=== PATIENT | male | born 1950 | race Caucasian/White ===

== ENCOUNTER → 2018-03-11 | Outpatient (CLI) | payer MEDICARE | END | disposition home or self-care (01) | LOC: OIH 12:58 | PROVIDERS: ATTEND Family Medicine | DX: N20.0 Calculus of kidney (principal); M47.896 Other spondylosis, lumbar region | CPT/HCPCS: 74018 ==

== ENCOUNTER → 2018-10-31 | Outpatient (CLI) | payer MEDICARE | END | disposition home or self-care (01) | LOC: OIH 10:47 | PROVIDERS: ATTEND Family Medicine | DX: Z01.818 Encounter for other preprocedural examination (principal); N20.0 Calculus of kidney; M47.815 Spondylosis without myelopathy or radiculopathy, thoracolumbar region; M41.9 Scoliosis, unspecified | CPT/HCPCS: 71046; 74018 ==

== ENCOUNTER 2018-11-13 07:23 | Inpatient (IN) | payer MEDICARE | END 2018-11-15 19:00 | disposition home health service (06) | LOC: DAHIP 07:23 → 4BH 15:12 | PROC: 0SRB0JZ Replacement of Left Hip Joint with Synthetic Substitute, Open Approach (ICD-10-PCS; principal; 2018-11-13 10:35) | DX: M16.12 Unilateral primary osteoarthritis, left hip (principal) ==

== ENCOUNTER → 2019-11-06 | Outpatient (CLI) | payer MEDICARE ==
[~2019-11-06] MED LIST: ASPI-1012 PO; HYDR-4457 PO
== END | disposition home or self-care (01) ==
LOC: RAH 08:45
PROVIDERS: ATTEND Family Medicine
DX: I71.4 Abdominal aortic aneurysm, without rupture (principal); I70.0 Atherosclerosis of aorta
CPT/HCPCS: 76775

== ENCOUNTER → 2020-07-02 | Outpatient (CLI) | payer MEDICARE ==
[~2020-07-02] MED LIST changes: +GADODIAMIDE 10 MMOL/20 ML VIAL IV ONE
== END | disposition home or self-care (01) ==
LOC: RAH 07:52
PROVIDERS: ATTEND Family Medicine
DX: M50.222 Other cervical disc displacement at C5-C6 level (principal); R22.1 Localized swelling, mass and lump, neck; J34.1 Cyst and mucocele of nose and nasal sinus
CPT/HCPCS: 70543; A9579

== ENCOUNTER → 2020-12-02 | Outpatient (CLI) | payer MEDICARE ==
[~2020-12-02] MED LIST changes: +ASPI-1005 PO; -ASPI-1012 PO; +ATOR40TA69 PO; +CARV12.580 PO; +CLOP75TA14 PO; +COLC0.6T73 PO; +FURO40TA7 PO; -GADODIAMIDE 10 MMOL/20 ML VIAL IV ONE; -HYDR-4457 PO; +LISI2.5T2 PO
== END | disposition home or self-care (01) ==
LOC: RAH 12:47
PROVIDERS: ATTEND Internal Medicine Cardiovascular Disease
DX: I82.401 Acute embolism and thrombosis of unspecified deep veins of right lower extremity (principal); M79.661 Pain in right lower leg; I87.1 Compression of vein
CPT/HCPCS: 93971

== ENCOUNTER 2021-07-22 16:19 | Inpatient (IN) | payer MEDICARE ==
[~2021-07-22] VITALS: Ht 180.3 cm; Wt 75.0 kg
[~2021-07-22 16:19] MED LIST changes: +LISI2.5T13 PO; -LISI2.5T2 PO
[2021-07-22 17:18] LABS: BASOPHILS % (AUTO) 0.3 % (0.0-5.0); EOSINOPHILS % (AUTO) 0.8 % (0.0-8.0); HEMATOCRIT 36.9 % (42-54); LYMPHOCYTES % (AUTO) 13.4 % (21.0-51.0); MEAN CORPUSCULAR HEMOGLOBIN 32.1 pg (27.0-33.0); MEAN CORPUSCULAR HGB CONC 32.5 g/dL (32.0-36.0); MEAN CORPUSCULAR VOLUME 98.7 fL (79-99); MONOCYTES % (AUTO) 7.9 % (3.0-13.0); NEUTROPHILS % (AUTO) 77.3 % (40.0-77.0); PLATELET COUNT (AUTO) 90 K/uL (130-400); RED BLOOD CELL COUNT(AUTO) 3.74 MIL/uL (4.50-6.20); RED CELL DISTRIBUTION WIDTH 21.4 % (11.0-15.5); WHITE BLOOD COUNT (AUTO) 3.8 K/uL (4.8-10.8)
[2021-07-22 17:28] LABS: INR 1.72 (0.85-1.15); PROTHROMBIN TIME 17.8 SEC (9.6-11.6)
[2021-07-22 17:29] LABS: PARTIAL THROMBOPLASTIN TIME 36.1 SEC (26.3-35.5)
[2021-07-22 17:37] LABS: ALBUMIN 2.7 g/dL (3.5-5.0); BILIRUBIN,TOTAL 3.4 mg/dL (0.2-1.0); CREATININE 1.3 mg/dL (0.5-1.5); TOTAL PROTEIN, SERUM 6.2 g/dL (6.0-8.3)
[2021-07-22 17:45] LABS: PLATELET MORPHOLOGY LARGE PLTS PRESENT
[2021-07-22 17:46] LABS: B-TYPE NATRIURETIC PEPTIDE 4290 pg/mL (0-100)
[2021-07-22 17:49] LABS: POTASSIUM 2.7 mmol/L (3.5-5.1)
[2021-07-22] MEDS ORDERED: POTASSIUM BICARB/CIT AC 25 MEQ TABLET.EFF PO ONE (18:00)
[2021-07-22 18:04] LABS: APPEARANCE,URINE Clear (CLEAR); BILIRUBIN,URINE Negative (NEGATIVE); COLOR,URINE Yellow (YELLOW); GLUCOSE, URINE (UA) Negative (NEGATIVE); KETONES,URINE Negative (NEGATIVE); LEUKOCYTE ESTERASE ,URINE Negative (NEGATIVE); NITRATE,URINE Negative (NEGATIVE); OCCULT BLOOD,URINE Negative (NEGATIVE); PROTEIN,URINE Negative (NEGATIVE)
[2021-07-22 18:12] LABS: AMMONIA 18 umol/L (11-32); LIPASE 102 U/L (114-286)
[2021-07-22] MEDS ORDERED: MAG/ALUM/SIMETH 30 ML UDCUP PO PRN (19:00)
[2021-07-22] MEDS ORDERED: NITROGLYCERIN 0.4 MG SL TAB SL PRN (19:00)
[2021-07-22] MEDS ORDERED: GUAIFENESIN-DM 200/20 MG 10 ML PO PRN (19:00)
[2021-07-22] MEDS ORDERED: ACETAMINOPHEN 325 MG TAB PO PRN ×2 (19:00)
[2021-07-22] MEDS ORDERED: IPRATROPIUM/ALBUTEROL SULFATE 3 ML SOLUTION IH PRN (19:00)
[2021-07-22] MEDS ORDERED: ONDANSETRON 4MG INJ IV PRN (19:00)
[2021-07-22] MEDS ORDERED: ZOLPIDEM TARTRATE 5 MG TAB PO PRN (19:00)
[2021-07-22] MEDS ORDERED: LACTULOSE 20 GM/30 ML UDCUP PO PRN (19:00)
[2021-07-22] MEDS ORDERED: HYDROCODONE/ACETAMINOPHEN 5/325 MG TAB PO PRN (19:00)
[2021-07-22] MEDS ORDERED: POTASSIUM BICARB/CIT AC 25 MEQ TABLET.EFF ONE (19:21)
[2021-07-22] MEDS ORDERED: POTASSIUM CHLORIDE 10% ELIXIR 20 MEQ/15 ML UDCUP PO PRN (21:30)
[2021-07-22] MEDS ORDERED: GLUCAGON 1MG KIT 1 MG ML IM PRN (21:30)
[2021-07-22] MEDS ORDERED: POTASSIUM CHLORIDE 10MEQ/100ML 100 ML IV PRN (21:30)
[2021-07-22] MEDS ORDERED: DEXTROSE 50%-WATER 50 ML DISP.SYRIN IV PRN (21:30)
[2021-07-22] MEDS ORDERED: KCL 20 MEQ ERTAB PO STA (21:32)
[2021-07-22] MEDS ORDERED: POTASSIUM CHLORIDE 10MEQ/100ML 10 MEQ/100 ML ML IV SCH (22:00)
[2021-07-22] MEDS: MIDODRINE HCL 5 MG TABLET PO SCH (22:13)
[2021-07-22] MEDS: FUROSEMIDE 20MG VIAL IV SCH (22:30)
[2021-07-22] MEDS ORDERED: SACU1TAB PO (23:35)
[2021-07-22] MEDS ORDERED: APIX5TAB PO (23:35)
[2021-07-22] MEDS ORDERED: FURO20TA4 PO (23:35)
[2021-07-22] MEDS ORDERED: CARV6.25 PO (23:35)
[2021-07-22] MEDS ORDERED: POTA-10 PO (23:35)
[2021-07-22] MEDS ORDERED: METO5TAB7 PO (23:35)
[2021-07-23 00:30] VITALS: BP 104/69
[2021-07-23 03:41] VITALS: BP 96/68
[2021-07-23] MEDS ORDERED: POTASSIUM CHLORIDE 20MEQ/100ML 100 ML IV ONE (04:57)
[2021-07-23] MEDS: FUROSEMIDE 20MG VIAL IV SCH ×2 (05:14→14:31)
[2021-07-23] MEDS: KCL 20 MEQ ERTAB PO PRN (05:44)
[2021-07-23] MEDS: INSULIN HUMULIN R 100 UNIT/ML 3ML SQ SCH ×4 (05:47→21:00)
[2021-07-23 05:58] LABS: BASOPHILS % (AUTO) 0.3 % (0.0-5.0); EOSINOPHILS % (AUTO) 1.8 % (0.0-8.0); HEMATOCRIT 34.7 % (42-54); LYMPHOCYTES % (AUTO) 17.5 % (21.0-51.0); MEAN CORPUSCULAR HEMOGLOBIN 32.4 pg (27.0-33.0); MEAN CORPUSCULAR HGB CONC 32.3 g/dL (32.0-36.0); MEAN CORPUSCULAR VOLUME 100.3 fL (79-99); MONOCYTES % (AUTO) 9.5 % (3.0-13.0); NEUTROPHILS % (AUTO) 70.6 % (40.0-77.0); PLATELET COUNT (AUTO) 80 K/uL (130-400); RED BLOOD CELL COUNT(AUTO) 3.46 MIL/uL (4.50-6.20); RED CELL DISTRIBUTION WIDTH 21.5 % (11.0-15.5); WHITE BLOOD COUNT (AUTO) 3.3 K/uL (4.8-10.8)
[2021-07-23 06:28] LABS: ALBUMIN 2.5 g/dL (3.5-5.0); BILIRUBIN,DIRECT 1.9 mg/dL (0.0-0.3); BILIRUBIN,TOTAL 3.1 mg/dL (0.2-1.0); CREATININE 1.2 mg/dL (0.5-1.5); POTASSIUM 3.1 mmol/L (3.5-5.1); THYROID STIMULATING HORMONE 3.74 uIU/mL (0.36-3.74); TOTAL PROTEIN, SERUM 5.5 g/dL (6.0-8.3)
[2021-07-23] MEDS ORDERED: ENOXAPARIN SODIUM 30 MG/0.3 ML SQ SCH (09:00)
[2021-07-23] MEDS ORDERED: CLOPIDOGREL 75MG TAB PO SCH (09:00)
[2021-07-23] MEDS: ASPIRIN 81MG CHEW TAB PO SCH (09:36)
[2021-07-23] MEDS: KCL 20 MEQ ERTAB PO SCH ×3 (09:36→15:37)
[2021-07-23] MEDS: MIDODRINE HCL 5 MG TABLET PO SCH ×3 (09:37→20:45)
[2021-07-23] MEDS: FAMOTIDINE 20MG VIAL IV SCH (09:40)
[2021-07-23 10:54] VITALS: BP 97/57
[2021-07-23 16:17] VITALS: BP 164/88
[2021-07-23 19:48] VITALS: BP 96/57
[2021-07-23] MEDS: ATORVASTATIN 40 MG TABLET PO SCH (20:45)
[2021-07-23 23:31] VITALS: BP_SYST 110; BP_SYST 96; BP_DIAS 54
[2021-07-24] VITALS (7 sets, daily range): BP systolic 82–154; BP diastolic 57–95
[2021-07-24] MEDS: FUROSEMIDE 20MG VIAL IV SCH ×2 (00:17→06:25)
[2021-07-24 04:10] LABS: HEMATOCRIT 34.5 % (42-54); MEAN CORPUSCULAR HEMOGLOBIN 32.4 pg (27.0-33.0); MEAN CORPUSCULAR HGB CONC 31.6 g/dL (32.0-36.0); MEAN CORPUSCULAR VOLUME 102.7 fL (79-99); RED BLOOD CELL COUNT(AUTO) 3.36 MIL/uL (4.50-6.20); RED CELL DISTRIBUTION WIDTH 21.6 % (11.0-15.5)
[2021-07-24 04:20] LABS: CREATININE 1.3 mg/dL (0.5-1.5); MAGNESIUM 1.9 mg/dL (1.80-2.40); PHOSPHORUS 3.3 mg/dL (2.5-4.9); POTASSIUM 3.7 mmol/L (3.5-5.1)
[2021-07-24] MEDS: INSULIN HUMULIN R 100 UNIT/ML 3ML SQ SCH ×4 (06:29→20:58)
[2021-07-24] MEDS ORDERED: IOHEXOL 350 MG/ML 100ML INFUS..BTL IV ONE (07:00)
[2021-07-24] MEDS: FAMOTIDINE 20MG VIAL IV SCH (09:40)
[2021-07-24] MEDS: CARVEDILOL 3.125 MG TABLET PO SCH ×2 (09:53→20:58)
[2021-07-24] MEDS: MIDODRINE HCL 5 MG TABLET PO SCH ×3 (09:54→20:57)
[2021-07-24] MEDS: ASPIRIN 81MG CHEW TAB PO SCH (09:54)
[2021-07-24] MEDS: FOLIC ACID 1 MG TABLET PO SCH (09:54)
[2021-07-24] MEDS: THIAMINE HCL 100 MG TABLET PO SCH (09:54)
[2021-07-24] MEDS ORDERED: APIXABAN 5 MG TABLET PO SCH (10:00)
[2021-07-24] MEDS: FUROSEMIDE 40 MG TABLET PO SCH (17:06)
[2021-07-24] MEDS: ATORVASTATIN 40 MG TABLET PO SCH (20:57)
[2021-07-25 04:10] VITALS: BP 105/70
[2021-07-25 04:49] LABS: HEMATOCRIT 35.4 % (42-54); MEAN CORPUSCULAR HEMOGLOBIN 32.2 pg (27.0-33.0); MEAN CORPUSCULAR HGB CONC 32.8 g/dL (32.0-36.0); MEAN CORPUSCULAR VOLUME 98.3 fL (79-99); RED BLOOD CELL COUNT(AUTO) 3.6 MIL/uL (4.50-6.20); RED CELL DISTRIBUTION WIDTH 21.3 % (11.0-15.5); WHITE BLOOD COUNT (AUTO) 3.9 K/uL (4.8-10.8)
[2021-07-25 04:54] LABS: INR 1.46 (0.85-1.15); PROTHROMBIN TIME 15.4 SEC (9.6-11.6)
[2021-07-25 04:55] LABS: PARTIAL THROMBOPLASTIN TIME 33.3 SEC (26.3-35.5)
[2021-07-25 04:59] LABS: ALBUMIN 2.5 g/dL (3.5-5.0); BILIRUBIN,TOTAL 2.9 mg/dL (0.2-1.0); CREATININE 1.1 mg/dL (0.5-1.5); MAGNESIUM 1.7 mg/dL (1.80-2.40); PHOSPHORUS 3.7 mg/dL (2.5-4.9); TOTAL PROTEIN, SERUM 5.8 g/dL (6.0-8.3)
[2021-07-25 05:03] LABS: POTASSIUM 2.6 mmol/L (3.5-5.1)
[2021-07-25] MEDS: KCL 20 MEQ ERTAB PO PRN ×3 (05:59→16:52)
[2021-07-25] MEDS: MAGNESIUM 2GM PREMIX 50ML 50 ML IV SCH (06:17)
[2021-07-25] MEDS: INSULIN HUMULIN R 100 UNIT/ML 3ML SQ SCH ×4 (06:23→21:00)
[2021-07-25 08:13] VITALS: BP 115/72
[2021-07-25] MEDS: FUROSEMIDE 40 MG TABLET PO SCH ×2 (09:44→16:51)
[2021-07-25] MEDS: ASPIRIN 81MG CHEW TAB PO SCH (09:44)
[2021-07-25] MEDS: FOLIC ACID 1 MG TABLET PO SCH (09:44)
[2021-07-25] MEDS: FAMOTIDINE 20MG VIAL IV SCH (09:44)
[2021-07-25] MEDS: THIAMINE HCL 100 MG TABLET PO SCH (09:44)
[2021-07-25] MEDS: MIDODRINE HCL 5 MG TABLET PO SCH ×3 (09:45→21:39)
[2021-07-25] MEDS: CARVEDILOL 3.125 MG TABLET PO SCH ×2 (09:45→21:00)
[2021-07-25] MEDS: ENOXAPARIN SODIUM 40 MG/0.4 ML SYRINGE SQ SCH (09:46)
[2021-07-25] MEDS: SPIRONOLACTONE 25 MG TAB PO SCH (09:48)
[2021-07-25] MEDS: DOBUTAMINE 250MG/D5 250ML 250 ML IV SCH (10:03)
[2021-07-25 11:13] VITALS: BP 97/70
[2021-07-25 16:24] VITALS: BP 94/51
[2021-07-25] MEDS: BALSAM PERU/CASTOR OIL 60 GM TUBE TP SCH ×2 (16:51→21:42)
[2021-07-25 19:13] LABS: MAGNESIUM 2.1 mg/dL (1.80-2.40); POTASSIUM 3.8 mmol/L (3.5-5.1)
[2021-07-25 20:00] VITALS: BP 82/54
[2021-07-25] MEDS: ATORVASTATIN 40 MG TABLET PO SCH (21:38)
[2021-07-26] VITALS (7 sets, daily range): BP systolic 81–100; BP diastolic 50–64
[2021-07-26 01:08] LABS: HEPATITIS B CORE IGM Negative (Negative); HEPATITIS Bs ANTIGEN SCREEN P Negative (Negative)
[2021-07-26 05:53] LABS: BASOPHILS % (AUTO) 0.5 % (0.0-5.0); EOSINOPHILS % (AUTO) 1.2 % (0.0-8.0); HEMATOCRIT 35.8 % (42-54); LYMPHOCYTES % (AUTO) 13.3 % (21.0-51.0); MEAN CORPUSCULAR HEMOGLOBIN 32.1 pg (27.0-33.0); MEAN CORPUSCULAR HGB CONC 32.4 g/dL (32.0-36.0); MEAN CORPUSCULAR VOLUME 99.2 fL (79-99); MONOCYTES % (AUTO) 9.9 % (3.0-13.0); NEUTROPHILS % (AUTO) 74.9 % (40.0-77.0); PLATELET COUNT (AUTO) 94 K/uL (130-400); RED BLOOD CELL COUNT(AUTO) 3.61 MIL/uL (4.50-6.20); RED CELL DISTRIBUTION WIDTH 21.5 % (11.0-15.5); WHITE BLOOD COUNT (AUTO) 4.1 K/uL (4.8-10.8)
[2021-07-26] MEDS: MAGNESIUM 2GM PREMIX 50ML 50 ML IV SCH (06:00)
[2021-07-26 06:26] LABS: ALBUMIN 2.5 g/dL (3.5-5.0); CREATININE 1.2 mg/dL (0.5-1.5); MAGNESIUM 1.9 mg/dL (1.80-2.40); PHOSPHORUS 3.1 mg/dL (2.5-4.9); POTASSIUM 3.6 mmol/L (3.5-5.1); TOTAL PROTEIN, SERUM 5.8 g/dL (6.0-8.3)
[2021-07-26] MEDS: INSULIN HUMULIN R 100 UNIT/ML 3ML SQ SCH ×4 (07:30→20:39)
[2021-07-26] MEDS: CARVEDILOL 3.125 MG TABLET PO SCH ×2 (09:00→20:47)
[2021-07-26] MEDS: FUROSEMIDE 40 MG TABLET PO SCH ×2 (09:00→16:39)
[2021-07-26] MEDS: SPIRONOLACTONE 25 MG TAB PO SCH (09:00)
[2021-07-26] MEDS: FOLIC ACID 1 MG TABLET PO SCH (09:26)
[2021-07-26] MEDS: FAMOTIDINE 20MG VIAL IV SCH (09:26)
[2021-07-26] MEDS: ENOXAPARIN SODIUM 40 MG/0.4 ML SYRINGE SQ SCH (09:26)
[2021-07-26] MEDS: ASPIRIN 81MG CHEW TAB PO SCH (09:26)
[2021-07-26] MEDS: THIAMINE HCL 100 MG TABLET PO SCH (09:26)
[2021-07-26] MEDS: BALSAM PERU/CASTOR OIL 60 GM TUBE TP SCH ×3 (09:27→20:50)
[2021-07-26] MEDS: MIDODRINE HCL 5 MG TABLET PO SCH ×3 (09:27→20:47)
[2021-07-26] MEDS: KCL 20 MEQ ERTAB PO PRN ×2 (11:35→16:40)
[2021-07-26] MEDS: DOBUTAMINE 250MG/D5 250ML 250 ML IV SCH (14:06)
[2021-07-26] MEDS: ATORVASTATIN 40 MG TABLET PO SCH (20:47)
[2021-07-27] VITALS: BP 95/73
[2021-07-27 04:00] VITALS: BP 94/68
[2021-07-27 05:14] LABS: BASOPHILS % (AUTO) 0.3 % (0.0-5.0); EOSINOPHILS % (AUTO) 0.9 % (0.0-8.0); HEMATOCRIT 33.5 % (42-54); LYMPHOCYTES % (AUTO) 13.9 % (21.0-51.0); MEAN CORPUSCULAR HEMOGLOBIN 32.6 pg (27.0-33.0); MEAN CORPUSCULAR HGB CONC 33.1 g/dL (32.0-36.0); MEAN CORPUSCULAR VOLUME 98.5 fL (79-99); MONOCYTES % (AUTO) 8.7 % (3.0-13.0); NEUTROPHILS % (AUTO) 75.9 % (40.0-77.0); PLATELET COUNT (AUTO) 101 K/uL (130-400); RED CELL DISTRIBUTION WIDTH 21.1 % (11.0-15.5); WHITE BLOOD COUNT (AUTO) 3.5 K/uL (4.8-10.8)
[2021-07-27] MEDS: MAGNESIUM 2GM PREMIX 50ML 50 ML IV SCH (05:14)
[2021-07-27 05:31] LABS: ALBUMIN 2.4 g/dL (3.5-5.0); POTASSIUM 3.7 mmol/L (3.5-5.1); TOTAL PROTEIN, SERUM 5.6 g/dL (6.0-8.3)
[2021-07-27] MEDS: KCL 20 MEQ ERTAB PO PRN ×2 (06:55→10:12)
[2021-07-27] MEDS: INSULIN HUMULIN R 100 UNIT/ML 3ML SQ SCH ×3 (07:30→16:07)
[2021-07-27] MEDS ORDERED: BALS60OI TP (07:47)
[2021-07-27] MEDS ORDERED: Midodrine Hcl PO (07:47)
[2021-07-27] MEDS ORDERED: FOLI1 PO (07:47)
[2021-07-27] MEDS ORDERED: CARV3.1262 PO (07:47)
[2021-07-27] MEDS ORDERED: SPIR25TA6 PO (07:47)
[2021-07-27] MEDS ORDERED: FURO40TA7 PO (07:47)
[2021-07-27] MEDS ORDERED: ATOR40TA69 PO (07:47)
[2021-07-27 08:05] VITALS: BP 98/56
[2021-07-27] MEDS ORDERED: PANTOPRAZOLE 40 MG TAB DR PO SCH (09:00)
[2021-07-27] MEDS: SPIRONOLACTONE 25 MG TAB PO SCH (09:00)
[2021-07-27] MEDS: FUROSEMIDE 40 MG TABLET PO SCH ×2 (09:00→16:46)
[2021-07-27] MEDS: CARVEDILOL 3.125 MG TABLET PO SCH (09:00)
[2021-07-27] MEDS: FOLIC ACID 1 MG TABLET PO SCH (10:08)
[2021-07-27] MEDS: THIAMINE HCL 100 MG TABLET PO SCH (10:08)
[2021-07-27] MEDS: ASPIRIN 81MG CHEW TAB PO SCH (10:08)
[2021-07-27] MEDS: ENOXAPARIN SODIUM 40 MG/0.4 ML SYRINGE SQ SCH (10:08)
[2021-07-27] MEDS: MIDODRINE HCL 5 MG TABLET PO SCH ×2 (10:09→14:22)
[2021-07-27] MEDS: BALSAM PERU/CASTOR OIL 60 GM TUBE TP SCH ×2 (10:13→14:22)
[2021-07-27 10:51] VITALS: BP 96/66
[2021-07-27 11:25] LABS: APPEARANCE,URINE Clear (CLEAR); BILIRUBIN,URINE Small (NEGATIVE); COLOR,URINE Dark Yellow (YELLOW); GLUCOSE, URINE (UA) Negative (NEGATIVE); KETONES,URINE Negative (NEGATIVE); LEUKOCYTE ESTERASE ,URINE Trace (NEGATIVE); NITRATE,URINE Negative (NEGATIVE); OCCULT BLOOD,URINE Negative (NEGATIVE); PH,URINE 8.5 (5.0-8.0); PROTEIN,URINE POS 2+ mg/dL (NEGATIVE)
[2021-07-27 11:39] LABS: BACTERIA,URINE Rare /HPF (None Seen); RBC,URINE 0-1 /HPF (0-1); SQUAMOUS EPITHELIAL CELL,UR 0-2 /HPF (0-2)
[2021-07-27 15:45] VITALS: BP 90/69
== END 2021-07-27 18:28 | disposition home health service (06) | DRG 291 ==
LOC: EDH 16:19 → EDHIP 18:37 → OBSVTOIN 18:37 → 4BH 07-23 00:16 → 4CH 07-25 09:07
PROVIDERS: ADMIT Internal Medicine; ATTEND Internal Medicine
DX: I13.0 Hypertensive heart and chronic kidney disease with heart failure and stage 1 through stage 4 chronic kidney disease, or unspecified chronic kidney disease (principal); I50.23 Acute on chronic systolic (congestive) heart failure; D61.818 Other pancytopenia; E87.6 Hypokalemia; I48.0 Paroxysmal atrial fibrillation; N18.30 Chronic kidney disease, stage 3 unspecified; E78.00 Pure hypercholesterolemia, unspecified; E78.5 Hyperlipidemia, unspecified; I25.5 Ischemic cardiomyopathy; I87.2 Venous insufficiency (chronic) (peripheral); I95.89 Other hypotension; D69.6 Thrombocytopenia, unspecified; I25.10 Atherosclerotic heart disease of native coronary artery without angina pectoris; K74.60 Unspecified cirrhosis of liver; L89.152 Pressure ulcer of sacral region, stage 2; L89.309 Pressure ulcer of unspecified buttock, unspecified stage; Z60.2 Problems related to living alone; Z88.0 Allergy status to penicillin; Z79.82 Long term (current) use of aspirin; Z79.01 Long term (current) use of anticoagulants; Z79.02 Long term (current) use of antithrombotics/antiplatelets; Z79.899 Other long term (current) drug therapy; I25.2 Old myocardial infarction; Z95.810 Presence of automatic (implantable) cardiac defibrillator; Z95.5 Presence of coronary angioplasty implant and graft; Z82.49 Family history of ischemic heart disease and other diseases of the circulatory system; Z82.5 Family history of asthma and other chronic lower respiratory diseases
CPT/HCPCS: 36415; 71045; 74170; 76700; 76705; 80048; 80053; 80074; 80076; 81001; 81003; 82140; 82550; 82948; 83605; 83690; 83735; 83880; 84100; 84132; 84145; 84443; 84484; 85025; 85027; 85610; 85730; 87040; 87088; 93005; 93970; 93978; 94760; 97039; G0378; J1250; J1650; J1940; J3480; J3490; Q9967